=== PATIENT | female | born 1965 | race Caucasian/White ===

== ENCOUNTER 2018-11-18 10:37 | Emergency (ER) | payer BC, OTHER ==
[~2018-11-18] VITALS: Ht 157.5 cm; Wt 83.1 kg
[~2018-11-18 10:37] MED LIST: IBUP-1984 PO; SERTRALINE; STRATTERA; SUMA25TA35 PO
[2018-11-18 10:47] VITALS: BP 144/89
[2018-11-18] MEDS ORDERED: proCHLORperazine 10 MG/2 ml inj IV ONE (11:50)
[2018-11-18] MEDS ORDERED: normal saline 1000ml 1,000 ML IV ONE (11:50)
[2018-11-18] MEDS ORDERED: ketorolac tromethamine 15mg/ml inj. IV ONE (11:50)
[2018-11-18] MEDS ORDERED: diphenhydrAMINE 50 mg/ml inj IV ONE (11:50)
== END 2018-11-18 13:18 | disposition home or self-care (01) ==
LOC: ER 10:37
DX: G43.909 Migraine, unspecified, not intractable, without status migrainosus (principal); F12.90 Cannabis use, unspecified, uncomplicated; Z90.49 Acquired absence of other specified parts of digestive tract; Z79.899 Other long term (current) drug therapy
CPT/HCPCS: 96374; 96375; 99283; J0780; J1200; J1885; J7030

== ENCOUNTER 2018-11-27 23:40 | Emergency (ER) | payer BC, OTHER ==
[~2018-11-27] VITALS: Ht 157.5 cm; Wt 81.8 kg
[2018-11-27 23:46] VITALS: BP 145/65
== END 2018-11-28 04:54 | disposition left against medical advice (07) ==
LOC: ER 23:41
DX: R07.9 Chest pain, unspecified (principal); Z53.21 Procedure and treatment not carried out due to patient leaving prior to being seen by health care provider
CPT/HCPCS: 71046; 93005; 99281

== ENCOUNTER 2019-05-18 14:34 | Emergency (ER) | payer OTHER, BC ==
[~2019-05-18] VITALS: Ht 157.5 cm; Wt 85.0 kg
[2019-05-18 14:44] VITALS: BP 129/92
[2019-05-18] MEDS ORDERED: CYCL-1 PO (15:05)
[2019-05-18] MEDS ORDERED: ketorolac trometh inj. 60 MG/2 ML VIAL IM ONE (15:05)
[2019-05-18] MEDS ORDERED: IBUP-1984 PO (15:05)
== END 2019-05-18 15:20 | disposition home or self-care (01) ==
LOC: ER 14:35
DX: S13.4XXA Sprain of ligaments of cervical spine, initial encounter (principal); S16.1XXA Strain of muscle, fascia and tendon at neck level, initial encounter; M25.552 Pain in left hip; M25.551 Pain in right hip; G43.909 Migraine, unspecified, not intractable, without status migrainosus; F12.90 Cannabis use, unspecified, uncomplicated; Z91.040 Latex allergy status; V89.2XXA Person injured in unspecified motor-vehicle accident, traffic, initial encounter; Y93.89 Activity, other specified; Y92.488 Other paved roadways as the place of occurrence of the external cause; Y99.8 Other external cause status
CPT/HCPCS: 96372; 99283; J1885

== ENCOUNTER 2019-05-26 07:26 | Emergency (ER) | payer BC, OTHER ==
[~2019-05-26] VITALS: Ht 157.5 cm; Wt 84.1 kg
[~2019-05-26 07:26] MED LIST changes: +CYCL-1 PO
[2019-05-26 07:59] LABS: BASOPHILS # (AUTO) 0.1 X10'3 (0-0.2); BASOPHILS % (AUTO) 0.6 % (0-1); EOSINOPHILS % (AUTO) 0.1 % (0-6); HEMATOCRIT 44.8 % (35.0-45.0); HEMOGLOBIN 15.2 g/dl (12.0-16.0); LYMPHOCYTES % (AUTO) 10.4 % (21-51); MEAN CORPUSCULAR HEMOGLOBIN 31.6 PG (27.0-31.0); MEAN CORPUSCULAR VOLUME 93.1 FL (78-98); MEAN PLATELET VOLUME 9.4 FL (7.4-10.4); MONOCYTES # (AUTO) 0.1 X10'3 (0-0.9); MONOCYTES % (AUTO) 1.5 % (2-12); NEUTROPHILS # (AUTO) 8.5 X10'3 (1.8-7.7); NEUTROPHILS % (AUTO) 87.4 % (42-75); PLATELET COUNT 302 X10'3 (140-440); RED BLOOD COUNT 4.81 X10'6 (4.20-5.60); RED CELL DISTRIBUTION WIDTH 13.3 % (11.5-14.5); WHITE BLOOD COUNT 9.7 X10'3 (4.5-11.0)
[2019-05-26 08:10] LABS: URINE HCG NEGATIVE (NEG)
[2019-05-26 08:16] LABS: ALANINE AMINOTRANSFERASE 33 U/L (12-78); ALBUMIN 4.2 G/DL (3.4-5.0); ALBUMIN/GLOBULIN RATIO 1.1 (1.1-1.5); ALKALINE PHOSPHATASE 71 IU/L (46-116); ANION GAP 11 (8-16); ASPARTATE AMINO TRANSFERASE 17 U/L (10-37); BILIRUBIN,TOTAL 0.5 MG/DL (0.1-1.0); BLOOD UREA NITROGEN 16 MG/DL (7-18); BUN/CREATININE RATIO 17.6 (6.6-38.0); CALCIUM 10.2 MG/DL (8.5-10.1); CHLORIDE 104 MMOL/L (99-107); CREATININE 0.91 MG/DL (0.40-0.90); GLUCOSE 164 MG/DL (70-104); LIPASE 118 U/L (73-393); POTASSIUM 3.9 MMOL/L (3.5-5.1); SODIUM 141 MMOL/L (135-145); TOTAL CARBON DIOXIDE 25.9 MMOL/L (24-32); TOTAL PROTEIN 8.2 G/DL (6.4-8.2); eGFR 65 ML/MIN
[2019-05-26 08:19] LABS: CLARITY,URINE CLOUDY (Clear); COLOR,URINE YELLOW (Yellow); GLUCOSE, URINE 250 mg/dl (Neg); KETONES,URINE NEGATIVE (Neg); LEUKOCYTE ESTERASE ,URINE NEGATIVE (Neg); NITRITES, URINE NEGATIVE (Neg); OCCULT BLOOD,URINE NEGATIVE (Neg); PH,URINE >=9.0 (4.8-8.0); PROTEIN,URINE NEGATIVE (Neg); UROBILINOGEN,URINE 0.2 E.U/dL (0.2-1.0)
[2019-05-26 08:30] LABS: UA COLLECTION TYPE STRAIGHT CATH
[2019-05-26 08:32] LABS: RBC,URINE NONE SEEN /HPF (0-2); SQUAMOUS EPITHELIAL CELL,UR MODERATE /LPF (FEW); WBC,URINE 0-4 /HPF (0-4)
[2019-05-26 08:34] LABS: AMORPHOUS PHOSPHATES 4+; BACTERIA,URINE FEW /HPF (Neg); MUCUS STRANDS FEW /LPF (Neg)
[2019-05-26 09:06] VITALS: BP 135/100
[2019-05-26] MEDS ORDERED: morphine 4 MG/ML inj SYRINge IV PRN (09:10)
[2019-05-26] MEDS ORDERED: ondansetron/PF 4mg/2ml inj IV ONE (09:10)
[2019-05-26] MEDS ORDERED: normal saline 1000ML IV soln IVB ONE (09:10)
[2019-05-26] MEDS ORDERED: proCHLORperazine 10 MG/2 ml inj IV ONE (10:10)
[2019-05-26] MEDS ORDERED: PROC-8 PO (10:23)
== END 2019-05-26 10:41 | disposition home or self-care (01) ==
LOC: ER 07:27
DX: R11.2 Nausea with vomiting, unspecified (principal); R10.84 Generalized abdominal pain; R10.10 Upper abdominal pain, unspecified; G43.909 Migraine, unspecified, not intractable, without status migrainosus; F12.90 Cannabis use, unspecified, uncomplicated; Z90.49 Acquired absence of other specified parts of digestive tract; Z91.040 Latex allergy status; Z79.899 Other long term (current) drug therapy
CPT/HCPCS: 36415; 74176; 80053; 81001; 81025; 83690; 85025; 85610; 96361; 96374; 96375; 99284; J0780; J2270; J2405; J7030

== ENCOUNTER 2019-10-14 13:41 | Emergency (ER) | payer BC, OTHER ==
[~2019-10-14] VITALS: Ht 157.5 cm; Wt 88.6 kg
[~2019-10-14 13:41] MED LIST changes: +PROC-8 PO
[2019-10-14 13:53] VITALS: BP 126/81
[2019-10-14] MEDS ORDERED: dexamethasone 4mg tablet PO ONE (14:00)
[2019-10-14] MEDS ORDERED: dexamethasone 4mg/ml inj PO ONE (14:00)
[2019-10-14] MEDS ORDERED: diphenhydrAMINE 25mg capsule PO ONE (14:00)
[2019-10-14] MEDS ORDERED: proCHLORperazine 10 MG/2 ml inj IM ONE (14:00)
[2019-10-14] MEDS ORDERED: ketorolac trometh. 30mg/ml inj. IM ONE (14:00)
== END 2019-10-14 14:52 | disposition home or self-care (01) ==
LOC: ER 13:41
DX: G43.909 Migraine, unspecified, not intractable, without status migrainosus (principal); Z90.49 Acquired absence of other specified parts of digestive tract; Z98.890 Other specified postprocedural states; Z91.040 Latex allergy status; Z79.899 Other long term (current) drug therapy
CPT/HCPCS: 96372; 99283; J0780; J1100; J1885

== ENCOUNTER 2020-03-28 05:11 | Emergency (ER) | payer BC, OTHER ==
[~2020-03-28] VITALS: Ht 157.5 cm; Wt 85.0 kg
[2020-03-28] MEDS ORDERED: ondansetron/PF 4mg/2ml inj IV ONE (05:25)
[2020-03-28] MEDS ORDERED: normal saline 1000ML IV soln IVB ONE ×2 (05:25→06:45)
[2020-03-28] MEDS ORDERED: morphine 4 MG/ML inj SYRINge IV PRN (05:25)
[2020-03-28 05:36] LABS: URINE HCG NEGATIVE (NEG)
[2020-03-28 05:46] LABS: CLARITY,URINE CLOUDY (Clear); COLOR,URINE YELLOW (Yellow); GLUCOSE, URINE NEGATIVE (Neg); KETONES,URINE 15 mg/dl (Neg); LEUKOCYTE ESTERASE ,URINE NEGATIVE (Neg); NITRITES, URINE NEGATIVE (Neg); OCCULT BLOOD,URINE NEGATIVE (Neg); PH,URINE 7.5 (4.8-8.0); PROTEIN,URINE NEGATIVE (Neg); UROBILINOGEN,URINE 0.2 E.U/dL (0.2-1.0)
[2020-03-28 05:49] LABS: ALANINE AMINOTRANSFERASE 35 U/L (12-78); ALBUMIN 3.7 G/DL (3.4-5.0); ALBUMIN/GLOBULIN RATIO 1.1 (1.1-1.5); ALKALINE PHOSPHATASE 66 IU/L (46-116); ANION GAP 14 (8-16); ASPARTATE AMINO TRANSFERASE 20 U/L (10-37); BILIRUBIN,TOTAL 0.3 MG/DL (0.1-1.0); BLOOD UREA NITROGEN 27 MG/DL (7-18); BUN/CREATININE RATIO 24.1 (6.6-38.0); CALCIUM 8.6 MG/DL (8.5-10.1); CHLORIDE 108 MMOL/L (99-107); CREATININE 1.12 MG/DL (0.40-0.90); GLUCOSE 138 MG/DL (70-104); POTASSIUM 3.6 MMOL/L (3.5-5.1); SODIUM 144 MMOL/L (135-145); TOTAL CARBON DIOXIDE 22.3 MMOL/L (24-32); eGFR 51 ML/MIN
[2020-03-28 05:54] LABS: LIPASE 259 U/L (73-393); TROPONIN I < 0.04 NG/ML (0.0-0.05)
[2020-03-28 06:01] LABS: BASOPHILS % (AUTO) 0.5 % (0-1); EOSINOPHILS # (AUTO) 0.1 X10'3 (0-0.9); EOSINOPHILS % (AUTO) 1.1 % (0-6); HEMATOCRIT 40.1 % (35.0-45.0); HEMOGLOBIN 13.4 g/dl (12.0-16.0); LYMPHOCYTES # (AUTO) 4.2 X10'3 (1.1-4.8); LYMPHOCYTES % (AUTO) 47.4 % (21-51); MEAN CORPUSCULAR HEMOGLOBIN 31.4 PG (27.0-31.0); MEAN CORPUSCULAR HGB CONC 33.4 g/dL (33.0-36.5); MEAN CORPUSCULAR VOLUME 93.8 FL (78-98); MEAN PLATELET VOLUME 9.4 FL (7.4-10.4); MONOCYTES # (AUTO) 0.5 X10'3 (0-0.9); MONOCYTES % (AUTO) 5.5 % (2-12); NEUTROPHILS % (AUTO) 45.5 % (42-75); PLATELET COUNT 267 X10'3 (140-440); RED BLOOD COUNT 4.28 X10'6 (4.20-5.60); RED CELL DISTRIBUTION WIDTH 13.2 % (11.5-14.5); WHITE BLOOD COUNT 8.9 X10'3 (4.5-11.0)
[2020-03-28 06:02] LABS: UA COLLECTION TYPE URINAL
[2020-03-28 06:06] LABS: SQUAMOUS EPITHELIAL CELL,UR FEW /LPF (FEW)
[2020-03-28 06:07] LABS: BACTERIA,URINE FEW /HPF (Neg); RBC,URINE 0-2 /HPF (0-2)
[2020-03-28 06:08] LABS: AMORPHOUS PHOSPHATES 3+; MUCUS STRANDS MODERATE /LPF (Neg)
[2020-03-28] MEDS ORDERED: ketorolac tromethamine 15mg/ml inj. IV ONE (06:45)
[2020-03-28] MEDS ORDERED: ketorolac trometh. 30mg/ml inj. IV ONE (06:45)
[2020-03-28] MEDS ORDERED: diphenhydrAMINE 50 mg/ml inj IV ONE (06:50)
[2020-03-28] MEDS ORDERED: metoclopramide 5 mg/ml inj IV ONE (06:50)
[2020-03-28] MEDS ORDERED: ONDA4TAB12 PO (08:17)
[2020-03-28] MEDS ORDERED: HYDR-3965 PO (08:17)
[2020-03-28 08:28] VITALS: BP 114/73
== END 2020-03-28 08:30 | disposition home or self-care (01) ==
LOC: ER 05:11
DX: K80.50 Calculus of bile duct without cholangitis or cholecystitis without obstruction (principal); R10.84 Generalized abdominal pain; G43.909 Migraine, unspecified, not intractable, without status migrainosus; F12.90 Cannabis use, unspecified, uncomplicated; Z90.49 Acquired absence of other specified parts of digestive tract; Z91.040 Latex allergy status; Z79.899 Other long term (current) drug therapy
CPT/HCPCS: 36415; 76700; 80053; 81001; 81025; 83690; 84484; 85025; 87088; 93005; 96374; 96375; 99285; J1200; J1885; J2270; J2405; J2765; J7030

== ENCOUNTER 2020-04-13 11:07 | Day surgery (SDC) | payer BC, OTHER ==
[2020-04-12 10:39] LABS: BASOPHILS % (AUTO) 0.7 % (0-1); EOSINOPHILS # (AUTO) 0.1 X10'3 (0-0.9); EOSINOPHILS % (AUTO) 2.1 % (0-6); LYMPHOCYTES # (AUTO) 2.1 X10'3 (1.1-4.8); LYMPHOCYTES % (AUTO) 38.4 % (21-51); MEAN CORPUSCULAR HEMOGLOBIN 31.7 PG (27.0-31.0); MEAN CORPUSCULAR VOLUME 93.2 FL (78-98); MEAN PLATELET VOLUME 8.5 FL (7.4-10.4); MONOCYTES # (AUTO) 0.2 X10'3 (0-0.9); MONOCYTES % (AUTO) 4.3 % (2-12); NEUTROPHILS % (AUTO) 54.5 % (42-75); PRE OP HEMATOCRIT 39.5 % (35.0-45.0); PRE OP HEMOGLOBIN 13.4 g/dL (12.0-16.0); PRE OP PLATELET COUNT 341 X10'3 (140-440); RED BLOOD COUNT 4.23 X10'6 (4.20-5.60); RED CELL DISTRIBUTION WIDTH 12.8 % (11.5-14.5)
[2020-04-12 10:52] LABS: ALBUMIN 3.5 G/DL (3.4-5.0); ALBUMIN/GLOBULIN RATIO 0.9 (1.1-1.5); ALKALINE PHOSPHATASE 62 IU/L (46-116); BLOOD UREA NITROGEN 24 MG/DL (7-18); BUN/CREATININE RATIO 24.5 (6.6-38.0); CALCIUM 9.1 MG/DL (8.5-10.1); CHLORIDE 107 MMOL/L (99-107); CREATININE 0.98 MG/DL (0.40-0.90); PRE OP ALT 21 U/L (30-65); PRE OP ANION GAP 6 (8-16); PRE OP AST 14 U/L (10-37); PRE OP BILIRUB, TOTAL 0.4 MG/DL (0.0-1.0); PRE OP GLUCOSE 86 MG/DL (70-104); PRE OP POTASSIUM 4.2 MMOL/L (3.4-5.1); PRE OP SODIUM 140 MMOL/L (135-145); TOTAL CARBON DIOXIDE 27.3 MMOL/L (24-32); TOTAL PROTEIN 7.3 G/DL (6.4-8.2); eGFR 60 ML/MIN
[2020-04-13] VITALS (11 sets, daily range): BP systolic 106–131; BP diastolic 68–81
[~2020-04-13] VITALS: Ht 157.5 cm; Wt 81.6 kg
[~2020-04-13 11:07] MED LIST changes: +ASPI-1094 PO; +ATOM40CA PO; -CYCL-1 PO; +FLUO20CA39 PO; -PROC-8 PO; -SERTRALINE; -STRATTERA; +ceFOXitin 2GM-NS 100mL ADDvant 100 ML IV ONE; +famotidine 20mg tablet PO ONE; +ringers solution, lacted 1,000 ML IV SCH
[2020-04-13] MEDS ORDERED: LIDOcaine 1% (10mg/ml) 2ml vial ONE (11:27)
[2020-04-13] MEDS ORDERED: aprepitant 40mg capsule PO ONE (11:40)
[2020-04-13] MEDS ORDERED: ringers solution, lacted 1,000 ML IV SCH (12:44)
[2020-04-13] MEDS ORDERED: meperidine/PF 25mg/ml syringe IV PRN (12:45)
[2020-04-13] MEDS ORDERED: HYDROmorphone inj. 0.5 MG/0.5 ML DISP.SYRIN IV PRN ×2 (12:45)
[2020-04-13] MEDS ORDERED: labetalol 20mg/4ml (5mg/ml) syringe IV PRN (12:45)
[2020-04-13] MEDS ORDERED: morphine 2 MG/ML inj. syringe IV PRN (12:45)
[2020-04-13] MEDS ORDERED: acetaminophen 1,000mg/100ml IV 100 ML IV PRN (12:45)
[2020-04-13] MEDS ORDERED: morphine 4 MG/ML inj SYRINge IV PRN (12:45)
[2020-04-13] MEDS ORDERED: ondansetron/PF 4mg/2ml inj IV PRN (12:45)
[2020-04-13] MEDS ORDERED: proCHLORperazine 10 MG/2 ml inj IV PRN (12:45)
[2020-04-13] MEDS ORDERED: hydrALAZINE 20mg/ml inj. IV PRN (12:45)
[2020-04-13] MEDS ORDERED: BUPIVAcaine/PF 2.5 mg/ml (0.25%) 30ml vial ONE (12:47)
[2020-04-13] MEDS ORDERED: sevoflurane 250ml liquid IH ONE (13:07)
[2020-04-13] MEDS ORDERED: propofol 10mg/ml 20ml vial IV ONE (13:07)
[2020-04-13] MEDS ORDERED: LIDOcaine 1%/PF 5ML 10 MG/ML VIAL ONE (13:07)
[2020-04-13] MEDS ORDERED: midazolam 2 mg/2 ml injection ONE (13:12)
[2020-04-13] MEDS ORDERED: fentaNYL /PF 50mcg/ml 5ml ampule ONE (13:15)
[2020-04-13] MEDS ORDERED: dexamethasone sod phosphate 4mg/ml inj. ONE (13:31)
[2020-04-13] MEDS ORDERED: rocuronium 10mg/ml inj IV ONE (13:31)
[2020-04-13] MEDS ORDERED: ondansetron/PF 4mg/2ml inj ONE (13:31)
[2020-04-13] MEDS ORDERED: ePHEDrine 50MG/ML INJ. ONE (13:43)
[2020-04-13] MEDS ORDERED: phenylephrine 10mg/ml inj. ONE (14:15)
[2020-04-13] MEDS ORDERED: neostigmine methylsulfate 1 MG/ML 10ml vial ONE (14:15)
[2020-04-13] MEDS ORDERED: glycopyrrolate 0.2mg/ml inj ONE (14:15)
--- NOTE | 2020-04-13 14:45 | NUR ---
Received from OR via BED , accompanied by Anesthesiologist DR SALAS and report given by Anesthesiolgist. PATIENT WAKING UP, DENIES PAIN, V/S WNL, NEUROVASCULAR CHECKS INTACT, 20G PIV LUE, SCD ON, BANDAIDS TO LAP SIGHTS OF ABDOMEN CDI.
[2020-04-13] MEDS ORDERED: ketorolac trometh. 30mg/ml inj. IV ONE (15:05)
[2020-04-13] MEDS ORDERED: HYDROcodone/acetaminophen 5mg/325mg tablet PO ONE (15:35)
--- NOTE | 2020-04-13 16:05 | NUR ---
PATIENT A&OX4, STATES PAIN CONTROLLED, V/S WNL, NEUROVASCULAR CHECKS INTACT, 20G PIV LUE D/C, SCD OFF, BANDAIDS TO LAP SIGHTS OF ABDOMEN CDI. .. I HAVE REVIEWED D/C INSTRUCTIONS WITH PATIENT AND FAMILY HAVE VERBALIZED UNDERSTANDING.PATIENT WAS D/C HOME WITH ALL BELONGINGS AND SCRIPT FOR [place] AND FAMILY GAVE TRANSPORT HOME.
== END 2020-04-13 16:05 | disposition home or self-care (01) ==
LOC: PAS 11:07
PROVIDERS: ATTEND Surgery
DX: K80.12 Calculus of gallbladder with acute and chronic cholecystitis without obstruction (principal); K82.8 Other specified diseases of gallbladder; F32.9 Major depressive disorder, single episode, unspecified; F90.9 Attention-deficit hyperactivity disorder, unspecified type; E78.5 Hyperlipidemia, unspecified; G43.909 Migraine, unspecified, not intractable, without status migrainosus; E66.9 Obesity, unspecified; Z68.33 Body mass index [BMI] 33.0-33.9, adult; Z79.899 Other long term (current) drug therapy; Z79.01 Long term (current) use of anticoagulants; Z98.890 Other specified postprocedural states; Z91.040 Latex allergy status
CPT/HCPCS: 36415; 47562; 71045; 80053; 82948; 85025; 85610; 85730; J0131; J0694; J1100; J1170; J1885; J2001; J2250; J2270; J2370; J2405; J2704; J2710; J3010; J3490; J7120; J8501; A4215; A4618; A7000

== ENCOUNTER 2021-09-29 12:08 | Emergency (ER) | payer BC, OTHER ==
[~2021-09-29] VITALS: Ht 157.5 cm; Wt 85.9 kg
[~2021-09-29 12:08] MED LIST changes: -ceFOXitin 2GM-NS 100mL ADDvant 100 ML IV ONE; -famotidine 20mg tablet PO ONE; -ringers solution, lacted 1,000 ML IV SCH
[2021-09-29] MEDS ORDERED: normal saline 1000ML IV soln IVB ONE (14:40)
[2021-09-29 14:50] LABS: BASOPHILS % (AUTO) 0.7 % (0-1); EOSINOPHILS # (AUTO) 0.1 X10'3 (0-0.9); EOSINOPHILS % (AUTO) 1.3 % (0-6); HEMATOCRIT 43.3 % (35.0-45.0); HEMOGLOBIN 14.7 g/dl (12.0-16.0); LYMPHOCYTES # (AUTO) 2.6 X10'3 (1.1-4.8); LYMPHOCYTES % (AUTO) 43.8 % (21-51); MEAN CORPUSCULAR HEMOGLOBIN 31.4 PG (27.0-31.0); MEAN CORPUSCULAR HGB CONC 33.8 g/dL (33.0-36.5); MEAN CORPUSCULAR VOLUME 92.7 FL (78-98); MEAN PLATELET VOLUME 8.9 FL (7.4-10.4); MONOCYTES # (AUTO) 0.3 X10'3 (0-0.9); MONOCYTES % (AUTO) 5.1 % (2-12); NEUTROPHILS # (AUTO) 2.9 X10'3 (1.8-7.7); NEUTROPHILS % (AUTO) 49.1 % (42-75); PLATELET COUNT 276 X10'3 (140-440); RED BLOOD COUNT 4.67 X10'6 (4.20-5.60); WHITE BLOOD COUNT 5.9 X10'3 (4.5-11.0)
--- NOTE | 2021-09-29 14:52 | NUR ---
Spoke to poison control. Reports as medication is amphetamine derivative to watch for agitation and seizures leading to rhabdomyolysis. Treat symptoms with benzos. If continued symptoms, trend CK and lactate levels. Reccomends observation for 6 hours from time of phone call.
[2021-09-29 14:56] VITALS: BP 122/82
[2021-09-29 15:00] LABS: ALANINE AMINOTRANSFERASE 38 U/L (12-78); ALBUMIN 3.9 G/DL (3.4-5.0); ALKALINE PHOSPHATASE 79 IU/L (46-116); ANION GAP 7 (8-16); ASPARTATE AMINO TRANSFERASE 22 U/L (10-37); BILIRUBIN,TOTAL 0.5 MG/DL (0.1-1.0); BLOOD UREA NITROGEN 18 MG/DL (7-18); BUN/CREATININE RATIO 16.8 (6.6-38.0); CALCIUM 8.7 MG/DL (8.5-10.1); CHLORIDE 108 MMOL/L (99-107); CREATININE 1.07 MG/DL (0.40-0.90); GLUCOSE 103 MG/DL (70-104); POTASSIUM 4.2 MMOL/L (3.5-5.1); SODIUM 143 MMOL/L (135-145); TOTAL CARBON DIOXIDE 28.1 MMOL/L (24-32); TOTAL PROTEIN 7.9 G/DL (6.4-8.2); eGFR 53 ML/MIN
[2021-09-29 15:10] LABS: ACETAMINOPHEN < 2.0 UG/ML (10-30); ETHANOL < 0.010 GM/DL (0.0-0.010)
[2021-09-29] MEDS ORDERED: magnesium oxide 400mg tablet PO ONE (16:00)
== END 2021-09-29 16:18 | disposition home or self-care (01) ==
LOC: ER 12:08
DX: T65.91XA Toxic effect of unspecified substance, accidental (unintentional), initial encounter (principal); R00.2 Palpitations; R06.02 Shortness of breath; R45.1 Restlessness and agitation; G43.909 Migraine, unspecified, not intractable, without status migrainosus; F12.90 Cannabis use, unspecified, uncomplicated; Z90.89 Acquired absence of other organs; Z98.890 Other specified postprocedural states; Z91.040 Latex allergy status; Z79.899 Other long term (current) drug therapy; Y92.89 Other specified places as the place of occurrence of the external cause
CPT/HCPCS: 36415; 71045; 80053; 80320; 80329; 82140; 84443; 84484; 85025; 93005; 96360; 99285; J7030

== ENCOUNTER 2023-04-02 09:56 | Outpatient (CLI) | payer OTHER ==
[~2023-04-02 09:56] MED LIST changes: +iohexol 300mg/ml 100ml inj. ONE
== END 2023-04-02 23:59 | disposition home or self-care (01) ==
LOC: RAD 09:56
PROVIDERS: ATTEND Nurse Practitioner Family
DX: K76.0 Fatty (change of) liver, not elsewhere classified (principal); R10.30 Lower abdominal pain, unspecified; R10.2 Pelvic and perineal pain; K42.9 Umbilical hernia without obstruction or gangrene; D73.89 Other diseases of spleen; Z90.49 Acquired absence of other specified parts of digestive tract
CPT/HCPCS: 74177; J3490; Q9967

== ENCOUNTER → 2025-05-23 | Emergency (ER) | payer BC, OTHER ==
[~2025-05-23] VITALS: Ht 156.7 cm; Wt 73.8 kg
[~2025-05-23] MED LIST changes: -FLUO20CA39 PO; +FLUO20CA41 PO; -iohexol 300mg/ml 100ml inj. ONE
--- NOTE | 2025-05-23 18:58 | Physician Documentation ---
History of Present Illness Chief Complaint: Abdominal Pain Stated Complaint: MULTIPLE MEDICAL ISSUES Time Seen by MD: 18:35 Primary Medical Doctor: MERYL HPI Patient has had reported emesis for 2 hours and states that she had has occasional blood coming out of her rectum for the last six months. She has had a colonoscopy and an endoscopy both of which were clear parent patient had a laparoscopic appy for weight loss and an appendectomy Patient has a long psychiatric history in his on multiple psychiatric medication s including Prozac, amoxatine and bupropion Day of Onset: May 23, 2025 Medication Reconciliation Allergies: Coded Allergies: No Known Drug Allergies (Verified Allergy, Unknown, 04/12/20) latex (Unverified Allergy, Unknown, 02/26/19) Scheduled Atomoxetine HCl (Strattera), 1 CAP PO QAM, (Reported) Fluoxetine Hcl* (Prozac*), 1 CAP PO QAM, (Reported) Scheduled PRN Aspirin (Ecotrin), 2 TAB PO BIDWM PRN for headache, (Reported) Ibuprofen* (Motrin*), 600 MG PO TIDWM PRN for pain, (Reported) Sumatriptan Succinate* (Imitrex Tab*), 100 MG PO BID PRN for headache, (Reported) Past Medical History Past Medical History: Migraine, *PSYCH* Past Surgical History: appendectomy, other Alcohol Use: Rarely Drug Use: marijuana Lives In: Home Review of Systems All Other Systems at this time: Reviewed and Negative ROS As stated above in the HPI, otherwise all systems are reviewed and negative. Physical Exam Vital Signs: Temperature: 98.7, Source: Oral, Heart Rate: 105, Respiratory Rate: 16, BP: 126/87, Pulse Oximetry: 98, Weight: 73.800 Oxygen Flow Rate: 0 Physical Exam General: Alert, no apparent distress. Cardiovascular: Regular rate and rhythm, no murmurs. Gastrointestinal: Soft, tender LLQ, Neurologic: Oriented x4. Psychiatric: Normal mood and affect. Skin: Normal color, warm and dry. No edema, no ecchymosis. Progress Results/Orders Results/Orders Orders - DAVID SANDERSON NP Urinalysis, Cult If Indicated (05/23/25 18:46) Cbc/Diff (05/23/25 18:46) Lipase (05/23/25 18:46) CMP (05/23/25 18:46) Vital Signs 9/15/25 18:40 Temp 98.7 Pulse 105 Resp 16 B/P (MAP) 126/87 Pulse Ox 98 O2 Flow Rate 0 Laboratory Tests Test 05/23/25 18:50 Urine Comment Medical Decision Making Findings Patient's abdominal pain although nonspecific shows no signs of any infectious processes of the hurt her laboratory values. I think there is also a psychiatric element to her presentation based on her history an extensive psychiatric medication list . States she wants to get her lap band removed. I explained that this is symptoms coming doing done in the outpatient setting. Advised her to go see her primary care to obtain referrals to either inclusion manager or general surgeon Differential Dx:Considerations: Include: AAA, -Complete, - Incomplete, -Inevitable, -Missed, -Threatened, Abruptio placentae, Angina/NE, Aortic dissection, Appendicitis, Bowel obstruction, Cholangitis, Cholelithasis, Constipation, Diverticular disease, Esophageal rupture, Esophagitis, Gastritis/PUD, Gastroenteritis, GI hemorrhage, Hernia, Hepatitis, Inflammatory BD, Ischemic bowel, Ovarian cyst/torsion, Pancreatitis, PID, Porphyria, Trauma, intraabdominal, Urinary obstruction, Urinary tract infection, Urolithiasis, Other Departure Disposition: 01 HOME / SELF CARE / HOMELESS Impression: Primary Impression: Abdominal pain Condition: Stable Discharge Instructions: Abdominal Pain (Nonspecific), Cholecystitis Signature Scribe Signature: o Attestation: Scribed for David Sanderson Pet Trainer by David Reyes NP . 05/23/25 20:02 DAVID SANDERSON ASSOCIATE FINANCIAL PLANNER May 23, 2025 18:58
[2025-05-23 19:02] LABS: LEUKOCYTE ESTERASE ,URINE TRACE (Neg); NITRITES, URINE NEGATIVE (Neg); OCCULT BLOOD,URINE NEGATIVE (Neg)
[2025-05-23 19:05] LABS: UA COLLECTION TYPE CLN CATCH MIDSTREAM
[2025-05-23 19:16] LABS: MUCUS STRANDS FEW /LPF (Neg); SQUAMOUS EPITHELIAL CELL,UR FEW /LPF (FEW)
[2025-05-23 19:24] LABS: MEAN PLATELET VOLUME 8.8 FL (7.4-10.4); RED CELL DISTRIBUTION WIDTH 13.2 % (11.5-14.5)
[2025-05-23 19:36] VITALS: TEMP 98.7
[2025-05-23 19:55] LABS: CREATININE 0.88 MG/DL (0.40-0.90); TOTAL CARBON DIOXIDE 28.3 MMOL/L (24-32); eCRCL 55 ML/MIN; eGFR 66 ML/MIN
[2025-05-23] MEDS: ketorolac trometh 15mg/ml vial 15 MG/ML ML IM ONE (20:16)
[2025-05-23 20:21] VITALS: BP 127/88; PULSE 89; RESP 16; O2SAT 97
== END | disposition home or self-care (01) ==
LOC: ER 18:26
DX: R10.9 Unspecified abdominal pain (principal); G43.909 Migraine, unspecified, not intractable, without status migrainosus; Z91.040 Latex allergy status; Z90.49 Acquired absence of other specified parts of digestive tract; Z88.8 Allergy status to other drugs, medicaments and biological substances
CPT/HCPCS: 36415; 80053; 81001; 83690; 85025; 87088; 96372; 99283; J1885

== ENCOUNTER 2025-08-06 12:26 | Emergency (ER) | payer BC, OTHER ==
[~2025-08-06] VITALS: Ht 157.5 cm; Wt 71.8 kg
[2025-08-06 12:46] VITALS: TEMP 98.3
--- NOTE | 2025-08-06 12:58 | ELECTROCARDIOGRAPH REPORT ---
[facility] Test Date: 2025-08-06 Test Time: 12:56:35 Pat Name: JENELLE STAPLES Department: EMERGENCY ROOM Room: Gender: F Classroom Instructor: DUGLAS : 1965 Requested By: GORDON MIRANDA Order Number: [id number] Reading MD: Dr. Ward Mauricio Measurements Intervals [place] Rate: 98 P: 56 [place]: 137 QRS: 35 QRSD: 75 T: 30 QT: 366 QTc: 468 Interpretive Statements Sinus rhythm Baseline wander in lead(s) V3 Electronically Signed On 08-06-2025 18:10:[address] Ward Mauricio Please click the below link to view image of tracing.
--- NOTE | 2025-08-06 12:59 | Physician Documentation ---
History of Present Illness ~ Chief Complaint: Dizziness Stated Complaint: NECK PAIN Time Seen by MD: 13:12 OK to notify your PCP?: Yes Primary Medical Doctor: rose higgins Source: patient Mode of Arrival: POV Exam Limitations: no limitations HPI Reports feeling dizzy this morning when she woke up. She has been using a walking stick to help ambulation. NIH 0 in triage. She reports also having a headache for the past 4 days and does take Imitrex 100 mg as well as Tylenol without any relief. She denies any cardiac history. Denies any chest pain, shortness of breath or vomiting. Medication Reconciliation Allergies: Coded Allergies: No Known Allergies (Unverified , 08/06/25) Scheduled Atomoxetine HCl (Strattera), 1 CAP PO QAM, (Reported) Fluoxetine Hcl* (Prozac*), 1 CAP PO QAM, (Reported) Scheduled PRN Aspirin (Ecotrin), 2 TAB PO BIDWM PRN for headache, (Reported) Ibuprofen* (Motrin*), 600 MG PO TIDWM PRN for pain, (Reported) Sumatriptan Succinate* (Imitrex Tab*), 100 MG PO BID PRN for headache, (Reported) Past Medical History Past Medical History: Migraine, *PSYCH* Past Surgical History: appendectomy, other Alcohol Use: Rarely Drug Use: marijuana Lives In: Home Review of Systems All Other Systems at this time: Reviewed and Negative Physical Exam Vital Signs: Temperature: 98.3, Source: Oral, Heart Rate: 95, Respiratory Rate: 16, BP: 107/77, Pulse Oximetry: 99, Weight: 71.800 Oxygen Flow Rate: 0 Physical Exam Gen: no distress HEENT: PERRL, EOMI Pulm: no distress CTAB CV: RRR no m/c/r Abd: deferred MSK: no deformity Neuro: +nystagmus on head movement. Nonfocal otherwise Skin: w/d/i Psych: unremarkable Progress Results/Orders Results/Orders Orders - GORDON MIRANDA MD Ct Head (08/06/25 15:25) Completed Orders - GORDON MIRANDA MD Electrocardiogram (08/06/25 12:52) Cbc/Diff (08/06/25 13:12) CMP (08/06/25 13:12) Urinalysis, Cult If Indicated (08/06/25 13:12) Hcg, Ur Ql (08/06/25 13:28) Ketorolac Trometh 15mg/Ml Vial (Toradol (08/06/25 14:40) Ct Head (08/06/25 15:25) Medications Received in ER Medications (Trade) Dose Ordered Sig/Margarita Route PRN Reason Start Time Stop Time Status Last Admin Dose Admin (Toradol injection) 30 mg ONCE ONCE IM 08/06/25 14:40 08/06/25 14:48 DC 08/06/25 15:04 30 MG Vital Signs 08/06/25 08/06/25 08/06/25 08/06/25 12:46 13:25 15:04 15:04 Temp 98.3 Pulse 95 85 Resp 16 13 15 15 B/P (MAP) 107/77 110/70 (83) Pulse Ox 99 100 O2 Flow Rate 0 Laboratory Tests Test 08/06/25 13:21 08/06/25 13:29 White Blood Count 6.0 Red Blood Count 4.53 Hemoglobin 14.2 Hematocrit 41.9 Mean Corpuscular Volume 92.6 Mean Corpuscular Hemoglobin 31.4 H Mean Corpuscular Hemoglobin Concent 34.0 Red Cell Distribution Width 13.4 Platelet Count 325 Mean Platelet Volume 8.0 Neutrophils (%) (Auto) 55.0 Lymphocytes (%) (Auto) 38.4 Monocytes (%) (Auto) 5.3 Eosinophils (%) (Auto) 0.8 Basophils (%) (Auto) 0.5 Neutrophils # (Auto) 3.3 Lymphocytes # (Auto) 2.3 Monocytes # (Auto) 0.3 Eosinophils # (Auto) 0.0 Basophils # (Auto) 0.0 CBC Comment Sodium Level 140 Potassium Level 4.1 Chloride Level 107 Carbon Dioxide Level 28.8 Anion Gap 4 L Blood Urea Nitrogen 16 Creatinine 1.01 H Estimated GFR/1.73 m2 56 BUN/Creatinine Ratio 15.8 Glucose Level 95 Calcium Level 8.5 Total Bilirubin 0.4 Aspartate Amino Transf (AST/SGOT) 15 Alanine Aminotransferase (ALT/SGPT) 20 Alkaline Phosphatase 79 Total Protein 7.5 Albumin 3.7 Globulin 3.8 Albumin/Globulin Ratio 1.0 L Chemistry Comments Urine Specimen Description Cln catch midstream Urine Color Yellow Urine Clarity Clear Urine pH 6.0 Urine Specific [place] >=1.030 Urine Protein Negative Urine Glucose (UA) Negative Urine Ketones Negative Urine Occult Blood Negative Urine Nitrite Negative Urine Bilirubin Negative Urine Urobilinogen 0.2 Urine Leukocyte Esterase Negative Urine Culture Indicated Not ind Volume Urine Centrifuged 10 ml Urine HCG, Qualitative Negative Urine Comment Medical Decision Making Additional information obtaine: family Findings 59 year old female with intermittent dizziness with nystagmus, worse on movement of head, which appears to be consistent with BPPV, and headache and history of migraine. CT head and workup unremarkable. Counseled otto maneuver, return precautions. Differential Dx:Considerations: Include: other Additional Information Ddx = BPPV, vestibulitis, URI, dehydration, meniere's Departure Disposition: 01 HOME / SELF CARE / HOMELESS Impression: Primary Impression: BPPV (benign paroxysmal positional vertigo) Condition: Stable Discharge Instructions: How to Perform the Otto Maneuver, Vertigo Referrals: NO PRIMARY CARE PROVIDER (PCP) Education Educated: Patient Educated regarding: diagnosis, treatment, prognosis, need for follow up Additional Comment Medical Screen Exam This patient recieved a medical screening examination. After reviewing the individual's medical complaints with presenting symptoms and performing an appropriate physical examination, it was determined that no immediate life- threatening emergency medical condition is present. This individual is also not a women having contractions. Signature Scribe Signature: . Attestation: . TENNILLE MARCUM Aug 06, 2025 12:59 GORDON MIRANDA MD Aug 06, 2025 16:11
[2025-08-06 13:29] LABS: MEAN PLATELET VOLUME 8.0 FL (7.4-10.4); RED CELL DISTRIBUTION WIDTH 13.4 % (11.5-14.5)
[2025-08-06 13:43] LABS: CREATININE 1.01 MG/DL (0.40-0.90); TOTAL CARBON DIOXIDE 28.8 MMOL/L (24-32); eCRCL 49 ML/MIN; eGFR 56 ML/MIN
[2025-08-06 13:46] LABS: URINE HCG NEGATIVE (NEG)
[2025-08-06 13:47] LABS: LEUKOCYTE ESTERASE ,URINE NEGATIVE (Neg); NITRITES, URINE NEGATIVE (Neg); OCCULT BLOOD,URINE NEGATIVE (Neg)
[2025-08-06 13:49] LABS: UA COLLECTION TYPE CLN CATCH MIDSTREAM
[2025-08-06] MEDS: ketorolac trometh 15mg/ml vial 15 MG/ML ML IM ONE (15:04)
--- NOTE | 2025-08-06 15:57 | RADIOLOGY REPORT ---
Procedure: [facility] Study Date and Requested Time: 08/06/2025 03:31 PM History: headache Comparison: None Dose: CTDI: 52.75 mGy DLP: 995.47 mGycm Technique: Multiplanar images obtained through the brain without intravenous contrast. Findings: Normal brain volume and formation. No hemorrhages, masses, mass effect, midline shift, herniation or cytotoxic edema following a large vascular territory. No intra-axial or extra-axial fluid collections. No evidence of hydrocephalus. The basal cisterns are patent. The pituitary gland, sella and parasellar regions are unremarkable. The cerebellar tonsils are in normal position. The cerebellum is unremarkable. The orbits and globes are unremarkable. The paranasal sinuses and mastoids are clear. There are no worrisome calvarial lesions. Impression: No evidence of acute intracranial abnormality.
[2025-08-06 16:21] VITALS: BP 117/76; PULSE 89; RESP 16; O2SAT 99
== END 2025-08-06 16:23 | disposition home or self-care (01) ==
LOC: ER 12:27
DX: H81.10 Benign paroxysmal vertigo, unspecified ear (principal); Z90.49 Acquired absence of other specified parts of digestive tract; F12.90 Cannabis use, unspecified, uncomplicated
CPT/HCPCS: 36415; 70450; 80053; 81003; 81025; 85025; 93005; 96372; 99285; J1885